=== PATIENT | male | born 1980 | race African-American/Black ===

== ENCOUNTER 2024-09-23 12:22 | Emergency (ER) | payer OTHER ==
[~2024-09-23] VITALS: Ht 175.3 cm; Wt 81.6 kg
[2024-09-23 12:28] VITALS: O2SAT 97
[2024-09-23] MEDS ORDERED: LORA-259 PO (13:46)
== END 2024-09-23 13:59 | disposition home or self-care (01) ==
LOC: ER 12:22
DX: F41.9 Anxiety disorder, unspecified (principal)
CPT/HCPCS: A4606; A4663

== ENCOUNTER 2024-11-21 09:10 | Emergency (ER) | payer OTHER ==
[~2024-11-21] VITALS: Ht 175.3 cm; Wt 83.9 kg
[~2024-11-21 09:10] MED LIST: LORA-259 PO
[2024-11-21 09:57] LABS: PLATELET COUNT (AUTO) 196 K/uL (152-348); RED BLOOD CELL COUNT(AUTO) 4.91 MIL/uL (4.06-5.63); RED CELL DISTRIBUTION WIDTH 14.1 % (12.1-16.2); WHITE BLOOD COUNT (AUTO) 3.2 K/uL (3.6-10.2)
[2024-11-21 10:03] LABS: CREATININE 1.3 mg/dL (0.6-1.3); SODIUM SERUM 141 mmol/L (136-145); UREA NITROGEN, BLOOD 9 mg/dL (7-18)
[2024-11-21 10:09] LABS: ASPARTATE AMINOTRANSFERASE 20 U/L (15-37); TOTAL PROTEIN, SERUM 7.7 g/dL (6.4-8.2)
[2024-11-21 10:50] VITALS: BP 126/87
[2024-11-21 12:13] VITALS: BP 123/82; O2SAT 98
== END 2024-11-21 12:14 | disposition home or self-care (01) ==
LOC: ER 09:10
DX: R29.818 Other symptoms and signs involving the nervous system (principal); R42 Dizziness and giddiness; R07.9 Chest pain, unspecified; F41.9 Anxiety disorder, unspecified
CPT/HCPCS: 36415; 70450; 71045; 84484; 85025; 85730; A4606; A4663